=== PATIENT | female | born 1955 | race Caucasian/White ===

== ENCOUNTER 2016-06-12 15:32 | Emergency (ER) | payer MEDICARE, BC ==
[2016-06-12 16:37] LABS: #Basophils 0.1 thou/uL (0.0-0.2); #Lymphocytes 1.5 thou/uL (1.20-3.40); #Monocytes 0.5 thou/uL (0.11-0.59); #Neutrophils 6.3 thou/uL (1.40-6.50); %Eosinophils 0.2 % (0.0-10.0); %Monocytes 5.3 % (0.0-10.0); Hematocrit 47.7 % (36.0-47.0); Mean Platelet Volume 7.5 fL (7.4-10.4); Red Blood Cell (RBC) Count 5.11 mill/uL (4.20-5.40); White Blood Cell (WBC) Count 8.4 thou/uL (4.8-10.8)
[2016-06-12] MEDS ORDERED: AMOXicillin 250 MG CAP ONE (16:47)
[2016-06-12] MEDS ORDERED: Sulfameth/Trimethoprim DS 800-160mg TAB ONE (16:47)
== END 2016-06-12 16:50 | disposition home or self-care (01) ==
LOC: BURERS 15:32
DX: L03.115 Cellulitis of right lower limb (principal); I10 Essential (primary) hypertension; F17.210 Nicotine dependence, cigarettes, uncomplicated; Z79.899 Other long term (current) drug therapy
CPT/HCPCS: 85025; 99283

== ENCOUNTER 2021-07-13 14:46 | Emergency (ER) | payer MEDICARE, BC ==
[2021-07-13 15:01] LABS: Bilirubin Negative (Negative); Blood, Urine Moderate (Negative); Glucose, Urine (Dipstick) Negative (Negative); Ketone, Urine Negative (Negative); Leukocyte Large (Negative); Nitrite Negative (Negative); Protein, Urine (Dipstick) 100 mg/dL (Neg-Trace); Urobilinogen 0.2 mg/dL (Less than 2); pH, Urine 5.5 (5.0-9.0)
[2021-07-13 15:05] LABS: Clarity Hazy (Clear)
[2021-07-13 15:06] LABS: Bacteria/HPF 1+ HPF (None Seen); Squamous Epithelial 0-3 HPF (0-3); WBC/HPF 21-50 HPF (0-3)
[2021-07-13] MEDS ORDERED: Sulfameth/Trimethoprim DS 800-160mg TAB ONE (15:16)
[2021-07-13] MEDS ORDERED: Nitrofurantoin Monohyd/M-Cryst 100 MG CAP ONE (15:16)
== END 2021-07-13 15:19 | disposition home or self-care (01) ==
LOC: BURERS 14:46
DX: N39.0 Urinary tract infection, site not specified (principal); I10 Essential (primary) hypertension; F17.210 Nicotine dependence, cigarettes, uncomplicated
CPT/HCPCS: 81003; 81015; 99283

== ENCOUNTER 2022-05-10 13:11 | Emergency (ER) | payer MEDICARE, BC | END 2022-05-10 15:50 | disposition home or self-care (01) | LOC: BURERS 13:11 | DX: S00.83XA Contusion of other part of head, initial encounter (principal); I10 Essential (primary) hypertension; E78.5 Hyperlipidemia, unspecified; F17.210 Nicotine dependence, cigarettes, uncomplicated; W19.XXXA Unspecified fall, initial encounter | CPT/HCPCS: 70450; 70486; 72125 ==

== ENCOUNTER 2023-06-09 13:55 | Emergency (ER) | payer MEDICARE, BC, OTHER | END 2023-06-09 14:57 | disposition home or self-care (01) | LOC: BURERS 13:55 | DX: M25.511 Pain in right shoulder (principal); M25.551 Pain in right hip; I10 Essential (primary) hypertension; E78.5 Hyperlipidemia, unspecified; F17.210 Nicotine dependence, cigarettes, uncomplicated; Z79.899 Other long term (current) drug therapy; Z79.85 Long-term (current) use of injectable non-insulin antidiabetic drugs; W19.XXXA Unspecified fall, initial encounter | CPT/HCPCS: 99283 ==